=== PATIENT | male | born 1955 | race Caucasian/White ===

== ENCOUNTER → 2017-09-10 | Outpatient (CLI) | payer OTHER | LOC: FIMAGING 07:47 | PROVIDERS: ATTEND Orthopaedic Surgery | DX: S83.241A Other tear of medial meniscus, current injury, right knee, initial encounter (principal); S82.291A Other fracture of shaft of right tibia, initial encounter for closed fracture; M76.51 Patellar tendinitis, right knee; M25.461 Effusion, right knee ==